=== PATIENT | female | born 1965 | race Caucasian/White ===

== ENCOUNTER → 2020-08-31 11:07 | Outpatient (CLI) | payer MEDICARE, OTHER, SELFPAY ==
--- NOTE | ~2020-08-31 | DEXA_ITS ---
Bone Density Report Name: Any Penaloza Age: 55 Sex: Female Ethnicity: White Date of : 1965 Indication: postmenopausal; screening for osteoporosis; Referring Provider: ROXANE, KAHLIL Study: Bone densitometry was performed. Exam Date: August 31, 2020 Accession number: [id number] Bone Density: Region BMD T-score Z-score Classification AP Spine (L1-L4) 1.269 2.0 3.0 Normal Femoral Neck (Left) 0.747 -0.9 0.1 Normal Total Hip (Left) 0.992 0.4 1.0 Normal Femoral Neck (Right) 0.879 0.3 1.3 Normal Total Hip (Right) 1.049 0.9 1.5 Normal Total Hip Mean 1.021 0.7 1.3 Normal World Health Organization criteria for BMD impression classify patients as: Normal (T-score at or above -1.0), Osteopenia (T-score between -1.0 and -2.5), or Osteoporosis (T-score at or below -2.5). 10-year Fracture Risk: FRAX not reported because: All T-scores for Spine Total, Hip Total, Femoral Neck at or above -1.0 Previous Exams: Region Exam Age BMD T-score BMD Change BMD Change Date g/cm2 vs Baseline vs Previous AP Spine(L1-L4) 08/31/2020 55 1.269 2.0 -0.092* -0.092* 09/13/2016 51 1.361 2.9 Total Hip(Left) 08/31/2020 55 0.992 0.4 -0.201* -0.201* 09/13/2016 51 1.192 2.1 Total Hip(Right) 08/31/2020 55 1.049 0.9 -0.117* -0.117* 09/13/2016 51 1.165 1.8 *Denotes significance at 95% confidence level, LSC for AP Spine = 0.022 g/cm2, LSC for Total Hip = 0.027 g/cm2 Impression: The patient has normal bone mass. The BMD for the AP Spine(L1-L4) decreased, changing by -0.092 since the last DXA exam. The BMD for the Total Hip(Left) decreased, changing by -0.201 since the last DXA exam. The BMD for the Total Hip(Right) decreased, changing by -0.117 since the last DXA exam. Discussion: BONE DENSITY IS ABOVE THE MINIMUM DESIRABLE LEVEL AT ALL SKELETAL SITES TESTED. This patient?s bone mineral density is above the minimum desirable level (T-score -1.0 or better) at all sites measured. The patient should follow a healthful lifestyle (good nutrition with adequate calcium and vitamin D, and appropriate weight-bearing exercise). Follow-Up: Consider repeating this study in 3 to 4 years to reassess this patient's status, or sooner if there is some new clinical indication. Reported by: MINA on 08/31/2020 12:17:00 PM. Reviewed, dictated and finalized at location Ann MEJIA
--- NOTE | ~2020-08-31 | MM_ITS ---
EXAMINATION: MM screening [facility] HISTORY: Screening TECHNIQUE: Craniocaudal and mediolateral oblique 3-D tomosynthesis images were obtained and synthetic 2-D images were generated. CAD analysis was submitted and interpreted. COMPARISON: Comparison to multiple prior studies sequentially, with oldest reviewed study dated 07/2014. BREAST PARENCHYMAL COMPOSITION: There are scattered areas of fibroglandular density. FINDINGS: There is no evidence of suspicious mass, calcification, or architectural distortion to sugg est malignancy in either breast. There has been no suspicious interval change. IMPRESSION: 1. No mammographic evidence of malignancy. 2. Recommend routine screening mammography in one year. BI-RADS Category 1: Negative Reviewed, dictated and finalized at location A.
== END ==
PROVIDERS: Visit Provider Nurse Practitioner
DX: Z12.31 Encounter for screening mammogram for malignant neoplasm of breast (principal); Z78.0 Asymptomatic menopausal state
CPT/HCPCS: 77063; 77067; 77080

== ENCOUNTER → 2021-09-05 11:28 | Outpatient (CLI) | payer MEDICARE, OTHER, SELFPAY ==
--- NOTE | ~2021-09-05 | MM_ITS ---
EXAMINATION: MM screening [facility] BI w [place] HISTORY: Screening TECHNIQUE: Craniocaudal and mediolateral oblique 3-D tomosynthesis images were obtained and synthetic 2-D images were generated. CAD analysis was submitted and interpreted. COMPARISON: Comparison to multiple prior studies sequentially, with oldest reviewed study dated 08/25. BREAST PARENCHYMAL COMPOSITION: There are scattered areas of fibroglandular density. FINDINGS: There is no evidence of suspicious mass, calcification, or architectural distortion to sugg est malignancy in either breast. There has been no suspicious interval change. IMPRESSION: 1. No mammographic evidence of malignancy. 2. Recommend routine screening mammography in one year. BI-RADS Category 1: Negative Reviewed, dictated and finalized at location A.
== END ==
PROVIDERS: Visit Provider Nurse Practitioner
DX: Z12.31 Encounter for screening mammogram for malignant neoplasm of breast (principal)
CPT/HCPCS: 77063; 77067

== ENCOUNTER → 2023-08-08 13:53 | Outpatient (CLI) | payer MEDICARE, OTHER, SELFPAY ==
--- NOTE | ~2023-08-08 | US_ITS ---
EXAMINATION: US pelvic complete w TV DATE: 08/08/2023 14:27 INDICATION: Pelvic pain. Comparison:No prior studies for comparison. TECHNIQUE: Multiple transabdominal and endovaginal sonographic images of the pelvis performed. FINDINGS: The uterus measures 6.6 x 3.3 x 4.3 cm. There are uterine fibroids measuring up to 4.5 cm. The endometrial complex measures 4-5 mm. The right ovary is not visualized. Left ovary measures 3.2 x 2.4 x 2.8 cm. There is no free fluid in the pelvis. There are no abnormal masses seen on either side. IMPRESSION: 1. Thickened endomtrial complex. The differential diagnosis includes endometrial hyperplasia, polyp a nd carcinoma. Biopsy is recommended. 2: Uterine fibroids measuring up to 4.5 cm. Reviewed, dictated and finalized at location L. IMPRESSION: 1. Thickened endomtrial complex. The differential diagnosis includes endometria l hyperplasia, polyp and carcinoma. Biopsy is recommended. 2: Uterine fibroids measuring up to 4.5 cm.
--- NOTE | ~2023-08-08 | MM_ITS ---
EXAMINATION: MM screening [facility] w [place] HISTORY: Screening mammogram TECHNIQUE: Craniocaudal and mediolateral oblique 3-D tomosynthesis images were obtained and synthetic 2-D images were generated. Bilateral rotated lateral CC views. CAD analysis was submitted and inter preted. COMPARISON: 09/05/2021, 08/31/2020, 09/16/2018 bilateral screening mammogram examinations BREAST PARENCHYMAL COMPOSITION: There are scattered areas of fibroglandular density. FINDINGS: There is no evidence of suspicious mass, calcification, or architectural distortion to sugg est malignancy in either breast. There has been no suspicious interval change. IMPRESSION: 1. No mammographic evidence of malignancy. 2. Recommend routine screening mammography in one year. BI-RADS Category 1: Negative Reviewed, dictated and finalized at location A.
== END ==
PROVIDERS: PCP Nurse Practitioner; Visit Provider Nurse Practitioner
DX: Z12.31 Encounter for screening mammogram for malignant neoplasm of breast (principal); R10.2 Pelvic and perineal pain; D25.9 Leiomyoma of uterus, unspecified
CPT/HCPCS: 76830; 76856; 77063; 77067

== ENCOUNTER 2023-10-16 09:30 | Outpatient (CLI) | payer MEDICARE, OTHER, SELFPAY ==
[2023-10-16 10:12] LABS: Anion Gap 10 mmol/L (8-16); Blood Urea Nitrogen 21 mg/dL (7-17); Calcium 9.3 mg/dL (8.4-10.2); Carbon Dioxide 26 mmol/L (22-30); Chloride 105 mmol/L (98-107); Estimated Glomerular Filt Rate > 60; Glucose 142 mg/dL (65-110); Potassium 3.9 mmol/L (3.4-5.0); Sodium 141 mmol/L (137-145)
== END 2023-10-16 09:31 | disposition home or self-care (01) ==
LOC: ANHSURGERY 09:37
PROVIDERS: Anesthesiology; Visit Provider Obstetrics & Gynecology Gynecology
DX: E11.9 Type 2 diabetes mellitus without complications (principal); Z01.818 Encounter for other preprocedural examination
CPT/HCPCS: 36415; 80048

== ENCOUNTER 2023-10-21 00:26 | Day surgery (SDC) | payer MEDICARE, OTHER, SELFPAY ==
[2023-10-09 13:54] VITALS: BMI 31.4
--- NOTE | 2023-10-09 14:07 | SUR.PREOP ---
Report to the Outpatient Waiting Room, entrance under the green pavilion located off [facility], at time 1030 on date 10/21/23. Planned Procedure Time: 1230. Time changes happen often and if your time is changed the preop area will call you the afternoon before. - You and your visitor will be asked to self-screen and do not enter if you have any COVID symptoms. - A mask is optional within the hospital at this time. Patients may have clear liquids (water, carbonated beverages, clear teas, apple juice) until 3 hours prior to surgery with a maximum of 20 ounces. before 0930 am - No food from midnight until time of surgery - Infants may have breast milk until 4 hours before surgery, infant formula 6 hours prior to surgery. - Children will be allowed to drink immediately following surgery. If applicable, please bring a bottle or sippy cup to assist with drinking. Juice, water, soda, and popsicles are readily available. For infants on formula, please bring formula the day of surgery. Pacifiers are allowed. Take the following medications with a SIP of water the morning of surgery: __pt stated that she was going to hold all morning meds DO NOT STOP ANY OF YOUR OTHER PRESCRIPTION MEDICATIONS PRIOR TO SURGERY ?EXCEPT THE FOLLOWING Medications to discontinue per physician ___vitamins for 3 days Date to take last dose Please no make-up, nail albanian, hairspray, perfume, deodorant, or body powder the day of surgery. No jewelry (including any body piercings) or valuables the day of surgery, leave them at home. Please take a shower or bath the night before, or the morning of, surgery with an antibacterial soap. Wear comfortable, loose fitting clothing. Children are encouraged to wear pajamas. - Jewelry must be removed prior to entering the operating room. Rings and piercings that are not removed may be cut off. - The hospital will not accept responsibility for valuables. - Please leave all valuables, including medications, at home the day of surgery. If you are going home after surgery, a licensed vacuum truck driver must drive you home. - NO public transportation without another adult if you receive anesthesia. - We recommend that an adult stay with you for 24 hours following discharge. - We also recommend that you do not drive, make important decision, drink alcoholic beverages, or take any drugs that were not prescribed by your health care provider for at least 24 hours after your discharge time. For Pediatric surgeries, we recommend two adults accompany the child home. Follow any additional instructions given to you from your surgeon. If you or anyone in your household have experienced Covid symptoms in the past week, please notify your surgeon or the nurse liaison at the phone number below for possible testing. Telephone instructions given to _patient__and asked if any additional questions and then verbalized understanding. Patient advised to call surgeon office or pre surgery nurse liaison [phone] if any additional questions.
--- NOTE | 2023-10-21 08:02 | WPDHPUPDATE1 ---
History and Physical Update Update Date/Time: 10/21/23 08:02 History and Physical has been reviewed, including an updated exam of the patient. There are NO changes in the patient's condition. Risks, benefits, and alternatives have been discussed and questions answered. Patient agrees to proceed with procedure.
--- NOTE | 2023-10-21 08:02 | PM.HPGS ---
History of Present Illness History of Present Illness Consent: Risks, benefits, and alternatives have been discussed and questions answered. Patient agrees to proceed with procedure. Chief complaint: post menopausal bleeding, vestibulitis Narrative: Any Penaloza is a 58 year old female who presented with postmenopausal bleeding. Pelvic ultrasound revealed thickened endometrium therefore was recommended to proceed with D&C hysteroscopy. In addition the patient has chronic vestibulitis and request a surgical procedure for attempt at resolution. Risks of infection, bleeding, perforation, possible pathology, persistent pain, and scarring are reviewed. Patient voices understanding and agrees to proceed. Review of Systems Review of Systems: not repeated day of surgery; patient states no changes in status [facility] Past Medical History Medical History (Updated 10/21/23 @ 08:34 by Roxanna Mcgill MD) Asthma Depression Diabetes Elevated cholesterol History of trigger finger Right middle finger surgically repaired Interstitial cystitis Irritable bowel syndrome Surgical History Surgical History (Updated 10/21/23 @ 08:32 by Roxanna Mcgill MD) History of carpal tunnel release Right History of section, low transverse X1 History of D&C 1988 and 1990 History of gastric bypass History of hysteroscopy 2016 with polyps found History of laparoscopic cholecystectomy History of left knee replacement Social History Social History Smoking status: Never smoker Living arrangements: with family Spiritual care concerns: No Meds Home Medications and Allergies Home Medications Medication Instructions Recorded Confirmed Type amitriptyline 50 mg tablet 50 mg PO HS 10/09/23 10/09/23 History atorvastatin 20 mg tablet 20 mg PO HS 10/09/23 10/09/23 History empagliflozin 25 mg tablet 25 mg PO DAILY 10/09/23 10/09/23 History (Jardiance) escitalopram oxalate 20 mg tablet 20 mg PO DAILY 10/09/23 10/09/23 History gabapentin 600 mg tablet 600 mg PO BID 10/09/23 10/09/23 History losartan 25 mg tablet 25 mg PO DAILY 10/09/23 10/09/23 History multivitamin 1 tablet PO DAILY 10/09/23 10/09/23 History tirzepatide 7.5 mg/0.5 mL 7.5 mg subcut WEEKLY 10/09/23 10/09/23 History subcutaneous pen injector (Mounjaro) vibegron 75 mg tablet (Gemtesa) 75 mg PO DAILY 10/09/23 10/09/23 History Allergies Allergy/AdvReac Type Severity Reaction Status Date / Time No Known Allergies Allergy Unverified 04/08/19 09:28 Exam Const: General: healthy appearing and alert Orientation/consciousness: patient oriented x3 Resp: Effort & Inspection: normal respiratory effort GI: GI Palp: Yes Soft to palpation, No Tenderness to palpation present (GI) and No Palpable mass present : External Female Exam: normal external appearance and externally tender (At 2,5,7 and 11 with Q-tip test) Speculum Exam - Vagina: normal appearance of the vagina and normal vaginal discharge Speculum Exam - Cervix: normal appearance of the cervix Bimanual exam- vagina & uterus: uterine size normal and consistency normal Bimanual Exam- Adnexa, other: normal adnexae and No adnexal tenderness Neuro: General: patient oriented x3 Assessment and Plan Assessment and plan (1) Post-menopausal bleeding: Code(s): N95.0 - Postmenopausal bleeding Status: Acute Assessment and Plan: Plan to proceed with D&C hysteroscopy (2) Vestibulitis, vulvar: Code(s): N94.810 - Vulvar vestibulitis Status: Acute Assessment and Plan: Plan to proceed with vestibular excision
[2023-10-21] MEDS: LACTATED RINGERS 1,000 ML 30 ML IV CONT ×2 (10:15→12:52)
[2023-10-21 10:19] VITALS: BP 134/52; PULSE 66; RESP 16; TEMP 36.6; O2SAT 100
[2023-10-21] MEDS: ACETAMINOPHEN 500 MG TABLET 1000 MG PO (10:22)
[2023-10-21 10:30] LABS: Glucose Point of Care 123 mg/dl (65-105)
--- NOTE | 2023-10-21 11:02 | WPDANESEPPF ---
Anes - Initial Pre Proc Eval Procedure: Operation Date: 10/21/23 11:45 Proposed Procedures p Hysteroscopy Dilation and Curettage, - Roxanna Mcgill MD s Perineal Resection - Roxanna Mcgill MD Date/Time: 10/21/23 11:02 Surgeon: Roxanna Mcgill MD Pre Op Diagnosis: post menopausal bleeding, vestibulitis Patient Data Age: 58 Gender: F Height: 1.65 m Weight: 83.5 kg Last Vital Signs Temp 36.6 C 10/21/23 10:19 Pulse 66 10/21/23 10:19 Resp 16 10/21/23 10:19 BP 134/52 L 10/21/23 10:19 Pulse Ox 100 10/21/23 10:19 O2 Del Method Room Air 10/21/23 10:19 Allergies Allergy/AdvReac Type Severity Reaction Status Date / Time ciprofloxacin [From Cipro] Allergy Severe Hives Verified 10/21/23 10:00 Sulfa (Sulfonamide Allergy Intermediate Hives Verified 10/21/23 10:00 Antibiotics) Home Medications Medication Instructions Recorded Confirmed Type amitriptyline 50 mg tablet 50 mg PO HS 10/09/23 10/09/23 History atorvastatin 20 mg tablet 20 mg PO HS 10/09/23 10/09/23 History empagliflozin 25 mg tablet 25 mg PO DAILY 10/09/23 10/09/23 History (Jardiance) escitalopram oxalate 20 mg tablet 20 mg PO DAILY 10/09/23 10/09/23 History gabapentin 600 mg tablet 600 mg PO BID 10/09/23 10/09/23 History losartan 25 mg tablet 25 mg PO DAILY 10/09/23 10/09/23 History multivitamin 1 tablet PO DAILY 10/09/23 10/09/23 History tirzepatide 7.5 mg/0.5 mL 7.5 mg subcut WEEKLY 10/09/23 10/09/23 History subcutaneous pen injector (Mounjaro) vibegron 75 mg tablet (Gemtesa) 75 mg PO DAILY 10/09/23 10/09/23 History Laboratory Tests 10/21/23 10:27 POC Capillary Glucose 123 H mg/dl (65-105) Patient hx anesthesia problems: none Family hx anesthesia problems: none Results Review: All pre-operative results and documents have been reviewed as part of the pre-operative evaluation. PMFSH Past Medical History Medical History (Updated 10/21/23 @ 08:34 by Roxanna Mcgill MD) Asthma Depression Diabetes Elevated cholesterol History of trigger finger Right middle finger surgically repaired Interstitial cystitis Irritable bowel syndrome Surgical History Surgical History (Updated 10/21/23 @ 08:32 by Roxanna Mcgill MD) History of carpal tunnel release Right History of section, low transverse X1 History of D&C 1988 and 1990 History of gastric bypass History of hysteroscopy 2017 with polyps found History of laparoscopic cholecystectomy History of left knee replacement Social History Social History Smoking status: Never smoker Living arrangements: with family Spiritual care concerns: No Anes - Eval Final PreProcedure Day of Procedure 10/21/23 11:02 Patient weight: obese Heart: regular rate and rhythm Lungs: clear to auscultation Airway: Mallampati scale class II Neurological: alert and oriented Last oral intake: >/= 8 hours ASA classification: III Emergent: no Anesthetic plan: proceed Anesthesia type and monitoring: general GIVS and standard monitoring Results Review: All pre-operative results and documents have been reviewed as part of the pre-operative evaluation. Informed Consent: The patient's anesthetic plan and its attendant risks and benefits were discussed with the patient/family/POA. Questions were solicited and answers provided to the satisfaction of the patient/family/POA.
[2023-10-21] MEDS: LIDO 1%/EPINEPHRINE 1:100,000 20 ML VIAL 3 ML INFILTRATE (12:46)
[2023-10-21 12:52] VITALS: BP 147/53; PULSE 65; RESP 16; O2SAT 97
--- NOTE | 2023-10-21 12:57 | P.OP_ITS ---
Procedure Note - Detailed Date of Procedure 10/21/23 Pre-op Diagnosis post menopausal bleeding, vestibulitis Post-op Diagnosis Same Procedure Performed D&C hysteroscopy Excision the perineum the introitus Surgeon Roxanna Mcgill MD Anesthesia MAC and Local Findings Uterus sounds to 8cm and appears grossly atrophic Description of Procedure The patient is taken to the operating room and placed under anesthesia the dorsal lithotomy position. She was prepped and draped in the usual sterile fashion. [place] speculum was placed in the vagina and the cervix grasped on the anterior lip with a tenaculum. The uterus is sounded to 8cm. The diagnostic hysteroscope was placed and with no abnormalities noted it is removed. The cervix is serially dilated to a 6 Hegar to allow the curette to pass. The 00 sharp curette was used to curette the endometrium until a good uterine cry was noted in all areas. Minimal material was obtained consistent with the very atrophic appearance. Vaginal instruments were then removed. Attention was turned to the vaginal introitus. The hymenal ring was grasped at 1 and 11 with Allis clamps. The hymenal ring is injected with 1% lidocaine with open in a U shape from 1 to 6 and then from 6 to 11. Using a scalpel a hor seshoe shape piece of vaginal introitus is removed at the hymenal ring. The tissue was undermined on the vaginal side to allow closure. It was then closed using 3-0 Vicryl in a running stitch. Good hemostasis is noted. Sponge, needle, and instrument counts are correct per the OR staff. Patient is awakened from anesthesia and taken to recovery in stable condition. Estimated Blood Loss 5 Drains No Packing No Pathology Yes (Endometrial curettings) Complications No immediate complications Condition Stable Disposition PACU
[2023-10-21 13:04] LABS: Glucose Point of Care 98 mg/dl (65-105)
[2023-10-21] MEDS: fentaNYL CITRATE INJ (*CRX) 100 MCG/2 ML VIAL 25 MCG IV PUSH ×3 (13:06→13:27)
[2023-10-21 13:20] VITALS: BP 127/46; PULSE 59; RESP 16; O2SAT 97
[2023-10-21] MEDS: oxyCODONE HCL (*CRX) 5 MG TAB IR PO (13:49)
[2023-10-21 13:50] VITALS: BP 149/59; PULSE 57; RESP 16; O2SAT 100
[2023-10-21 14:20] VITALS: BP 135/53; PULSE 60; RESP 14; O2SAT 98
== END 2023-10-21 14:35 | disposition home or self-care (01) ==
PROVIDERS: Visit Provider Obstetrics & Gynecology Gynecology
PROC: 0U5B8ZZ Destruction of Endometrium, Via Natural or Artificial Opening Endoscopic (ICD-10-PCS; CPT 58563; principal; 2023-10-21 11:45)
PROC: (CPT 57260; 2023-10-21 11:45)
DX: N95.0 Postmenopausal bleeding (principal); N94.810 Vulvar vestibulitis; E11.9 Type 2 diabetes mellitus without complications; F32.A Depression, unspecified; J45.909 Unspecified asthma, uncomplicated; E78.00 Pure hypercholesterolemia, unspecified; K58.9 Irritable bowel syndrome, unspecified; E66.9 Obesity, unspecified; Z68.30 Body mass index [BMI] 30.0-30.9, adult; Z98.84 Bariatric surgery status; Z79.85 Long-term (current) use of injectable non-insulin antidiabetic drugs; Z90.49 Acquired absence of other specified parts of digestive tract
CPT/HCPCS: 58558; 56605; 82948; 88305; A9270; J1100; J1885; J2250; J2405; J2704; J3010; J7120

== ENCOUNTER 2024-08-11 09:23 | Outpatient (CLI) | payer MEDICARE, OTHER, SELFPAY ==
--- NOTE | ~2024-08-11 | MM_ITS ---
EXAMINATION: MM screening [facility] BI w [place] HISTORY: Screening mammogram TECHNIQUE: Craniocaudal and mediolateral oblique 3-D tomosynthesis images were obtained and synthetic 2-D images were generated. CAD analysis was submitted and interpreted. COMPARISON: 08/08/2023, 09/05/2021, 08/31/2020 BREAST PARENCHYMAL COMPOSITION:Not Dense. There are scattered areas of fibroglandular density. FINDINGS: No suspicious mass, calcification, or architectural distortion are identified in either keira ast to suggest malignancy. There has been no suspicious interval change. IMPRESSION: No mammographic evidence of malignancy. Recommend routine screening mammography in one year. BI-RADS Category 1: Negative Reviewed, dictated and finalized at location .
== END 2024-08-11 09:24 | disposition home or self-care (01) ==
LOC: MICIMG 09:26
PROVIDERS: Visit Provider Nurse Practitioner
DX: Z12.31 Encounter for screening mammogram for malignant neoplasm of breast (principal)
CPT/HCPCS: 77063; 77067

== ENCOUNTER 2024-08-14 11:53 | Outpatient (CLI) | payer MEDICARE, OTHER, SELFPAY ==
--- NOTE | ~2024-08-14 | US_ITS ---
EXAMINATION: US pelvic complete w TV DATE: 08/14/2024 12:27 INDICATION: Postmenopausal bleeding TECHNIQUE: Multiple transabdominal and endovaginal sonographic images of the pelvis were obtained. COMPARISON: 08/08/2023 FINDINGS: The retroverted uterus measures 6.3 x 2.7 x 5.2 cm. The endometrial complex measures 2 mm in thickne ss. Again seen are couple hypoechoic uterine masses consistent with uterine fibroids the larger measu ring 3.0 x 2.1 x 3.5 cm at the uterine fundus and the smaller the lower uterine segment measuring 2.1 x 1.8 x 2.7 cm. There are few scattered tiny echogenic dystrophic myometrial calcifications in the u terine body. 6 mm anechoic nabothian cyst at the cervix. The right ovary measures 3.1 x 2.8 x 2.5 cm. The left ovary measures 3.0 x 2.4 x 1.9 cm. Vascular flow identified in the right ovary on color Dop pler. The left ovary remains without discernible internal vascular flow on color Doppler suspicious f or chronic infarct. There is no free fluid in the pelvis. IMPRESSION: 1. No significant change in a couple uterine fibroids with normal endometrial complex of 2 mm in thic kness. Reviewed, dictated and finalized at location B. IMPRESSION: 1. No significant change in a couple uterine fibroids with normal endometrial c omplex of 2 mm in thickness.
== END 2024-08-14 11:54 | disposition home or self-care (01) ==
LOC: MICIMG 11:55
PROVIDERS: Visit Provider Nurse Practitioner
DX: N95.0 Postmenopausal bleeding (principal); D25.9 Leiomyoma of uterus, unspecified
CPT/HCPCS: 76830; 76856

== ENCOUNTER 2025-01-05 10:39 | Outpatient (CLI) | payer MEDICARE, OTHER, SELFPAY ==
--- NOTE | ~2025-01-05 | DEXA_ITS ---
Bone Density Report Name: DENZEL SHUKLA Age: 59 Sex: Female Ethnicity: White Date of : 1965 Indication: postmenopausal; screening for osteoporosis; parental hip fracture; Referring Provider: Valentino, Shelli Study: Bone densitometry was performed. Exam Date: January 05, 2025 Accession number: [id number] Bone Density: Region BMD T-score Z-score Classification AP Spine(L1-L4) 1.068 0.2 1.5 Normal Femoral Neck (Left) 0.571 -2.5 -1.3 Osteoporosis Total Hip (Left) 0.808 -1.1 -0.2 Osteopenia Femoral Neck (Right) 0.671 -1.6 -0.4 Osteopenia Total Hip (Right) 0.852 -0.7 0.1 Normal Femoral Neck Mean 0.621 -2.1 -0.8 Osteopenia Total Hip Mean 0.830 -0.9 -0.1 Normal World Health Organization criteria for BMD impression classify patients as: Normal (T-score at or above -1.0), Osteopenia (T-score between -1.0 and -2.5), or Osteoporosis (T-score at or below -2.5). 10-year Fracture Risk: FRAX not reported because: Some T-score for Spine Total or Hip Total or Femoral Neck at or below -2.5 Clinical Information Provided by Patient: Parent has had a hip fracture Has used the following medications: Vitamin D, Calcium Patient maximum height was 65 Menopause Age: 51 No regular weight bearing exercise Does not regularly consume dairy products Drinks caffeinated beverages Onset of menses at age 11 Number of children 2 Impression: The patient has osteoporosis, based on the Left Femoral Neck T-score. The patient has risk factors, including: parental hip fracture. Discussion: INCREASED RISK OF FRACTURE. BONE DENSITY IS UNDESIRABLY LOW AT ONE OR MORE SKELETAL SITES, CONSISTENT WITH POSTMENOPAUSAL OSTEOPOROSIS. This patient's lowest T-score meets the World Health Organization's (WHO) criteria for osteoporosis at one or more sites (T-score -2.5 or below). In untreated patients, the risk of osteoporotic fracture increases approximately two-fold for each 1.0 SD decrease in T-score. Low bone density is not the only risk factor for fracture; also consider factors such as patient's age, frailty or poor health, risk of falling, risk of injury, previous osteoporotic fracture, family history of osteoporosis, cigarette smoking, low body weight, etc. Not everyone with low bone mineral density has osteoporosis; osteomalacia and other metabolic bone disorders should also be considered. Patients who have osteoporosis should be evaluated for specific diseases and conditions (secondary causes) that may cause or contribute to bone loss. The [place] [employer] Clinical Endocrinologists (AACE) and National Osteoporosis Foundation (NOF) recommend pharmacologic intervention for all postmenopausal women whose T-score is in this range. The patient should follow a healthful lifestyle (good nutrition with adequate calcium and vitamin D, and appropriate weight-bearing exercise). Follow-Up: Consider a repeat BMD and Vertebral Fracture Assessment (VFA) exam in 2 years or sooner if medically necessary, to reassess this patient's status. Reported by: KADEN on 01/05/2025 10:57:00 AM. Reviewed, dictated and finalized at location A.
--- OUTSIDE RECORDS SUMMARY | 2025-01-05 11:56 | XMS_ITS | Encounter Summary ---
Author Organization [employer] Address 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
--- OUTSIDE RECORDS SUMMARY | 2025-01-05 11:56 | XMS_ITS | Encounter Summary ---
Author Organization [employer] Address 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
--- OUTSIDE RECORDS SUMMARY | 2025-01-05 11:56 | XMS_ITS | Encounter Summary ---
Author Organization [employer] Address 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
--- OUTSIDE RECORDS SUMMARY | 2025-01-05 11:56 | XMS_ITS | Clinical Summary ---
Author Organization [facility] Address [address] [place] [phone] Phone Care Team Providers Care Button Clamper Name Role Phone Stefano Warren MD Primary Care Provider [phone] Allergies No known active allergies Medications pravastatin (PRAVACHOL) 20 mg Oral tablet Take 20 mg by mouth Daily LATE. Active lisinopril (PRINIVIL) 10 mg Oral tablet Take 10 mg by mouth daily. Active metFORMIN (GLUCOPHAGE) 1,000 mg Oral tablet Take 1,000 mg by mouth 2 times daily with meals. Active glipiZIDE (GLUCOTROL) 5 mg Oral tablet Take 5 mg by mouth daily with breakfast. Active pentosan polysulfate sodium (ELMIRON) 100 mg Oral Cap Take 100 mg by mouth. Active aspirin (JEANETTE CHEWABLE) 81 mg Oral Chew Take 81 mg by mouth daily. Active liraglutide (VICTOZA 3-SAMAN) 0.6 mg/0.1 mL (18 mg/3 mL) subCUT Inject by subcutaneous injection daily. Active oxybutynin chloride SR 24 hour (DITROPAN XL) 10 mg Oral TR24 Take 10 mg by mouth daily. 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 Gender Identity Not on file Sexual Orientation Not on file Plan of Treatment Health Maintenance Due Date Last Done Comments DTAP/TDAP/TD VACCINES (1 - Tdap) 1985 HEPATITIS B VACCINES (1 of 3 - 19+ 3-dose series) 05/1985 CERVICAL CANCER SCREENING 1996 BREAST CANCER SCREENING 2006 COLORECTAL SCREENING 2011 Colorectal Cancer Screening 2011 FIT-DNA Q 3 years 2011 FIT/FOBT Q 1 year 2011 Flex Sig/CT Colonography Q 5 years 2011 ZOSTER VACCINE (1 of 2) 2016 INFLUENZA VACCINE (#1) 2024 Insurance BLUE ACCESS/TRUE BLUE PPO Care Teams Button Clamper Relationship Specialty Start Date End Date Stefano Warren MD PCP - General 11/11/15
--- OUTSIDE RECORDS SUMMARY | 2025-01-05 11:56 | XMS_ITS | Encounter Summary ---
Author Organization [facility] Address [address] [phone] Care Team Providers Care Machine Presser Name Role Phone Stefano Warren MD Primary Care Provider [phone] Encounter Details Date Type Department Care Team (Late st Contact Info) Description 01/23/2007 Outpatient Historical [facility] Edmund Salguero MD [facility] [place], [place] [id number] [place], Authorized P NO ADDRESS ON FILE Chronic Interstitial Cystitis (Primary Dx) Social History Tobacco Use Types Packs/Day Years Used Date Smoking Tobacco: Never Assessed Comments Unknown Sex and Gender Information Value Date Recorded Sex Assigned at Not on file Legal Sex Female 2:42 AM PANEL EDGE PAINTER Gender Identity Not on file Sexual Orientation Not on file documented as of this encounter Plan of Treatment Not on file documented as of this encounter Procedures Procedure Name Priority Date/Time Associated Diagnosis Comments URINALYSIS W/REFLEX MICROSCOPIC Routine 01/23/2007 4:26 PM PANEL EDGE PAINTER documented in this encounter Results * (ABNORMAL) URINALYSIS (01/23/2007 4:26 PM PANEL EDGE PAINTER) COLOR UA Green INTERFACE SYSTEM CLARITY UA Slt. Cloudy(A) Clear INTERFACE SYSTEM SPECIFIC GRAVITY UA 1.020 1.001 - 1.035 INTERFACE SYSTEM PH UA 6.0 5.0 - 8.0 INTERFACE SYSTEM LEUKOCYTE ESTERASE UA Trace(A) Negative INTERFACE SYSTEM NITRITE UA Negative Negative INTERFACE SYSTEM PROTEIN UA Negative Negative INTERFACE SYSTEM GLUCOSE UA 4+(A) Negative INTERFACE SYSTEM KETONES UA Negative Negative INTERFACE SYSTEM UROBILINOGEN UA <1 <1 mg/dL INTE RFACE SYSTEM BILIRUBIN UA Negative Negative INTERFA CE SYSTEM BLOOD UA 2+(A) Negative INTERFACE SYSTEM WBC UA 20(H) 0 - 5 /HPF INTERFACE SYSTEM RBC UA 4 0 - 4 /HPF INTERFACE SYSTEM 01/23/2007 4:26 PM PANEL EDGE PAINTER us Edmund Salguero MD URINE ORDERABLES Edited INTERFACE SYSTEM Refer to clinic/hospital department documented in this encounter Visit Diagnoses Diagnosis Chronic interstitial cystitis- Primary documented in this encounter Care Teams Machine Presser Relationship Specialty Start Date End Date Stefano Warren MD PCP - General 11/11/15 documented as of this encounter
--- OUTSIDE RECORDS SUMMARY | 2025-01-05 11:56 | XMS_ITS | Encounter Summary ---
Author Organization [facility] Address 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
--- OUTSIDE RECORDS SUMMARY | 2025-01-05 11:56 | XMS_ITS | Clinical Summary ---
Author Organization [facility] Address [address] [place] [phone] Phone Care Team Providers Care Roller Leveler Name Role Phone Stefano Warren MD Primary Care Provider Unavail able Allergies Active Allergy Reactions Criticality Noted Date Comments Sitagliptin Unknown 04/22/2020 Sulfa Antibiotics Unknown 04/22/2020 Medications amitriptyline (ELAVIL) 50 MG Tablet 0 Active atorvastatin (LIPITOR) 20 MG Tablet Active JARDIANCE 25 MG Tablet 0 Active escitalopram (LEXAPRO) 20 MG Tablet 0 Active gabapentin (NEURONTIN) 600 MG Tablet TK 1 T PO BID 0 Active glimepiride (AMARYL) 2 MG Tablet 0 Active LANTUS SOLOSTAR 100 UNIT/ML Solution Pen-injector 12 Units by Subcutaneous route nightly. 0 Active losartan (COZAAR) 100 MG Tablet Take 50 mg by mouth daily. Active traMADol (ULTRAM) 50 MG TabletIndicatio ns:Acute pain of left shoulder Take 1-2 Tabs by mouth every 6 hours as needed for Moderate or more severe pain. 12 Tab 0 Active Active Problems No known active problems Social History Tobacco Use Types Packs/Day Years Used Date Smoking Tobacco: Never Smokeless Tobacco: Never Alcohol Use Standard Drinks/Week Comments Not Currently 0 (1 standard drink = 0.6 oz pur e alcohol) Comments Unknown Sex and Gender Information Value Date Recorded Sex Assigned at Not on file Legal Sex Female 12:48 PM CDT Gender Identity Not on file Sexual Orientation Not on file Last Filed Vital Signs Vital Sign Reading Time Taken Comments Blood Pressure 128/66 04/22/2020 1:08 PM CDT Pulse 84 04/22/2020 1:08 PM CDT Temperature 36.2 C (97.1 F) 04/22/2020 1:08 PM CDT Respiratory Rate - - Oxygen Saturation 98% 04/22/2020 1:08 PM CDT Inhaled Oxygen Concentration - - Weight 106.1 kg (234 lb) 04/22/2020 1:08 PM CDT Height - - Body Mass Index - - Plan of Treatment Health Maintenance Due Date Last Done Comments Hepatitis C Virus (HCV) Screening 1966 TdaP Immunization 1966 Hepatitis B Immunization (1 of 3 - 19+ 3-dose series) 1985 Pap Smear 1987 Cervical Cancer Screening (CCS) 1996 HPV/Cotest 1996 Colonoscopy 2011 Colorectal Cancer Screening 2011 Cologuard 2016 Immunochemical Fecal Occult Blood 2016 Mammogram 2016 Pneumococcal Immunization (5 0+ years) (1 of 1 - PCV) 2016 Zoster Immunization (1 of 2) 2016 Influenza Immunization (#1) 2024 08/20/2016 SARS-COV-2 Immunization ( season) 2024 10/27/2021, 03/05/2021, 02/10/2021 Respiratory Syncytial Virus (RSV) Immunization (Adult) (1 - 1-dose 75+ series) 2041 Meningococcal Immunization (ACWY) Aged Out No longer eligible b ased on patient's age to complete this topic Pneumococcal Immunization Combined Aged Out No longer eligible b ased on patient's age to complete this topic Rotavirus Immunization Aged Out No lo nger eligible based on patient's age to complete this topic Insurance MEDICARE Care Teams Roller Leveler Relationship Specialty Start Date End Date Stefano Warren MD PCP - General Adult Medicine 04/22/20
--- OUTSIDE RECORDS SUMMARY | 2025-01-05 11:56 | XMS_ITS | Encounter Summary ---
Author Organization [facility] Address 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
== END 2025-01-05 10:40 | disposition home or self-care (01) ==
LOC: CHSIMG 10:40
PROVIDERS: Visit Provider Nurse Practitioner
DX: Z78.0 Asymptomatic menopausal state (principal); M85.89 Other specified disorders of bone density and structure, multiple sites; M81.0 Age-related osteoporosis without current pathological fracture
CPT/HCPCS: 77080

== ENCOUNTER 2025-08-17 09:20 | Outpatient (CLI) | payer MEDICARE, BC, SELFPAY ==
--- NOTE | ~2025-08-17 | MM_ITS ---
EXAMINATION: MM screening [facility] BI w [facility] HISTORY: Screening TECHNIQUE: Craniocaudal and mediolateral oblique 3-D tomosynthesis images were obtained and synthetic 2-D images were generated. CAD analysis was submitted and interpreted. COMPARISON: 08/11/2024 BREAST PARENCHYMAL COMPOSITION: Not Dense: The breasts are almost entirely fatty. FINDINGS: There is no evidence of suspicious mass, calcification, or architectural distortion to suggest malignancy. There has been no suspicious interval change. IMPRESSION: 1. No mammographic evidence of malignancy. Recommend routine screening mammography in one year. BI-RADS Category 2: Benign finding(s) Reviewed, dictated and finalized at location Q. IMPRESSION: 1. No mammographic evidence of malignancy. Recommend routine screening mammogra phy in one year. BI-RADS Category 2: Benign finding(s)
== END 2025-08-17 09:21 | disposition home or self-care (01) ==
PROVIDERS: PCP Nurse Practitioner; Visit Provider Nurse Practitioner
DX: Z12.31 Encounter for screening mammogram for malignant neoplasm of breast (principal)
CPT/HCPCS: 77063; 77067

== ENCOUNTER 2025-09-14 09:51 | Outpatient (CLI) | payer MEDICARE, BC, SELFPAY ==
--- NOTE | ~2025-09-14 | US_ITS ---
EXAMINATION: US transvaginal, 09/14/2025 9:53 CDT HISTORY: Postmenopausal bleeding Comparison: None Technique: Atkins-scale and color Doppler images were obtained. Findings: Uterus: Uterus anteverted 7.5 x 3.4 x 4.5 cm, there are uterine body fibroids noted the largest in the posterior uterine body 3.1 x 4.1 cm. . Endometrium 2.6 mm. Right Ovary:Right ovary not identified due to bowel gas. Left Ovary: Left ovary not identified due to bowel gas. Free Fluid: None Impression: 1. Uterine fibroids detailed above. Ovaries not identified Reviewed, dictated and finalized at location P. Impression: 1. Uterine fibroids detailed above. Ovaries not identified
== END 2025-09-14 09:52 | disposition home or self-care (01) ==
LOC: MICIMG 09:52
PROVIDERS: PCP Nurse Practitioner; Visit Provider Nurse Practitioner
DX: D25.9 Leiomyoma of uterus, unspecified (principal); N95.0 Postmenopausal bleeding
CPT/HCPCS: 76830